=== PATIENT | female | born 1945 | race American Indian/Alaskan Native ===

== ENCOUNTER → 2016-10-26 18:23 | Outpatient (CLI) | payer MEDICARE | END | disposition home or self-care (01) | LOC: D.LABREF 18:23 | DX: J20.9 Acute bronchitis, unspecified (principal) ==

== ENCOUNTER → 2017-12-30 10:56 | Outpatient (CLI) | payer MEDICARE ==
[~2017-12-30] VITALS: Ht 162.6 cm; Wt 75.0 kg
--- NOTE | ~2017-12-30 | HEMODYNAMI ---
PATIENT:KRISHAN SOMERS MEDICAL RECORD: [id number] : 43 LOCATION:[facility] ADMISSION DATE: 12/30/17 Generatedon:12/30/201713:54 Patient name: KRISHAN SOMERS Patient #: [id number] SSN: : 1945 Date of study: 12/30/2017 Page: Of Hemodynamic Procedure Report Patient Data Patient Demographics Procedure consent was obtained First Name: KRISHAN Gender: Female Last Name: LIZBET : 1945 [facility] Initial: DAISY Age: 72 year(s) Patient #: [id number] Race: Unknown Additional ID: [id number] Contact details [address]: [address] [place] [address] [place] State: [place] City: [place] Zip code: [address] Admission Admission Data Admission Date: 12/30/2017 Admission Time: 10:56 Procedure Procedure Types Cath Procedure Diagnostic Procedure LHC LHC w/Coronaries Procedure Description Procedure Date Procedure Date: 12/30/2017 Procedure Start Time: 13:33 Procedure End Time: 13:53 Procedure Staff Name Function Daryn Carballo MD Performing Physician Sean Preston RT Monitor Modesto Pineda RN Nurse Hannah Louis RT Scrub Procedure Data Cath Procedure Fluoroscopy Diagnostic fluoroscopy Total fluoroscopy Time: 6.2 time: 6.2 min min Diagnostic fluoroscopy Total fluoroscopy dose: 335 dose: 335 mGy mGy Contrast Material Contrast Material Type Amount (ml) Isovue 300 91 Entry Location Entry Primary Successful Side Size Upsize Upsize Entry Closure Ernandez ccessful Closure Location (Fr) 1 (Fr) 2 (Fr) Remarks Device Remarks Radial Right 6 Fr Mechanical artery Short Compression Estimated blood loss: 10 ml Diagnostic catheters Device Type Used For End Catheter Placement DIAGNOSTIC [place] 110cm 5 Procedure Fr catheter ([id number]) DIAGNOSTIC JL 3.5 5Fr Procedure catheter ([id number]) DIAGNOSTIC AR MOD 5Fr Procedure Catheter ([id number]) Procedure Complications No complications Procedure Medications Medication Administration Route Dosage 0.9% NaCl I.V. 100 ml/hr Heparin Flush Bag added to field 2 bags (1000units/500ml NS) Lidocaine 2% added to field 20 Radial Cocktail added to field 1 syringe (Verapomil 2mg/Nitro 400mcg/Heparin 1500units) Versed I.V. 1 mg Fentanyl I.V. 50 mcg Versed I.V. 1 mg Fentanyl I.V. 50 mcg Radial Cocktail I.A. 1 syringe (Verapomil 2mg/Nitro 400mcg/Heparin 1500units) Hemodynamics Rest Heart Rate: 69 (bpm) Pressure Samples Time Site Value (mmHg) Purpose Heart Use Rate(bpm) 13:37 LV 166/11,16 Snapshot 76 13:38 AO 159/89(120) Pullback 77 13:38 LV 114/7,16 Pullback 77 13:38 AO 134/75(102) Snapshot 75 Gradients Valve Time Site 1 Site 2 Mean SEP/DFP Peak To Heart Use (mmHg) (sec/min) Peak Rate (mmHg) (bpm) Aortic 13:38 LV AO 0 77 114/7,16 159/89(120) Calculations Valve P-P Mean Valve Index Valve Source Name Gradient Area Flow (cm2) Aortic 0 0 Snapshots Pre Cath Intra NCS Post Cath Vital Signs Time Heart Resp SPO2 etCO2 NIBP (mmHg) Rhythm Pain Sedation Rate (ipm) (%) (mmHg) Status Level (bpm) 13:27:26 72 14 90 0 148/78(116) NSR 0 (11) 10(A) , No pain 13:32:05 72 15 92 0 151/80(117) NSR 0 (11) 10(A) , No pain 13:36:49 71 12 90 0 145/71(114) NSR 0 (11) 10(A) , No pain 13:41:28 78 15 92 0 144/72(119) NSR 0 (11) 10(A) , No pain 13:46:04 72 22 92 0 133/69(97) NSR 0 (11) 10(A) , No pain 13:50:37 71 16 94 0 137/68(101) NSR 0 (11) 10(A) , No pain Medications Time Medication Route Dose Verified Delivered Reason Notes Effectiveness by by 13:26:43 0.9% NaCl I.V. 100 [place] Per ml/hr Edwin Pineda physician RN RN 13:26:55 Heparin Flush added 2 bags [place] used for Bag to Lorigan Lorximena procedure (1000units/500ml field RN RN NS) 13:27:07 Lidocaine 2% added 20ml [place] for local to vial Lorigan Lorigan anesthetic field RN RN 13:27:24 Radial Cocktail added 1 [place] used for (Verapomil to syringe Lorigan Lorigan procedure 2mg/Nitro field RN RN 400mcg/Heparin 1500units) 13:29:53 Versed I.V. 1 mg [place] for sedation Edwin Pineda RN RN 13:30:03 Fentanyl I.V. 50 mcg [place] for sedation Edwin Pineda RN RN 13:35:43 Versed I.V. 1 mg [place] for sedation Edwin Pineda RN RN 13:35:48 Fentanyl I.V. 50 mcg [place] for sedation Edwin Pineda RN RN 13:36:18 Radial Cocktail I.A. 1 [place] Daryn for (Verapomil syringe Lorigan Haris vasodilation 2mg/Nitro ABEL STOVER 400mcg/Heparin 1500units) Procedure Log Time Note 12:58:44 Time tracking: Regular hours 12:58:47 Plan of Care:Hemodynamics will remain stable., Cardiac rhythm will remain stable., Comfort level will be maintained., Respiratory function will remain adequate., Patient/ family verbilizes understanding of procedure., Procedure tolerated without complication., Recovers from procedure without complications.. 12:58:50 Hannah Counts RT(R) sent for patient. Start room use. 13:10:19 Patient received from Pre/Post Procedure Room to CCL 3 Alert and oriented. Tansferred to table in Supine position. 13:10:20 Warm blankets applied, and annie hugger turned on for patient comfort. 13:10:20 Correct patient and procedure confirmed by team. 13:10:22 Signed procedure consent form obtained from patient. 13:10:23 ECG and BP/O2 sat monitors applied to patient. 13:10:24 Full Disclosure recording started 13:25:45 Baseline sample Acquired. 13:25:45 Vital chart was started 13:25:51 Baseline sample Acquired. 13:26:02 Rhythm: sinus rhythm 13:26:14 H&P Date Dictated: 12/25/2017 Within 30 days and on chart., H&P Addendum completed by physician on day of procedure. (MUST COMPLETE FOR ALL OUTPATIENTS). 13:26:15 Pre-procedure instructions explained to patient. 13:26:15 Pre-op teaching completed and patient verbalized understanding. 13:26:20 Family in patients room. 13:26:22 Patient NPO since Midnight. 13:26:23 Is the patient allergic to Iodine/contrast media? No. 13:26:24 Is patient on blood thinner?No 13:26:27 Patient diabetic? No. 13:26:30 Patient not . Patient is over age 55. 13:26:32 Previous problem with sedation/anesthesia? No ? 13:26:33 Snore? Yes 13:26:34 Sleep apnea? No 13:26:35 Deviated septum? No 13:26:36 Opens mouth fully? Yes 13:26:37 Sticks out tongue? Yes 13:26:41 Airway obstruction? No ? 13:26:43 0.9% NaCl 100 ml/hr I.V. was administered by Modesto Pineda RN; Per physician; 13::43 Dentures? No ? 13:26:46 Pre procedure: right dorsailis pedis pulse 1+ Palpable, but thready & weak; easily obliterated 13:26:49 Patient pain scale 0/10 ?. 13:26:53 IV patent on arrival in right forearm with 0.9% NaCl at [facility]. 13:26:55 Heparin Flush Bag (1000units/500ml NS) 2 bags added to field was administered by Modesto Pineda RN; used for procedure; 13::55 Lab results completed and on chart. 13:26:58 Right Radial & Right Groin area was prepped with chlora-prep and draped in sterile fashion 13:27:00 Alarms reviewed by R. N. 13:27:00 Sharps counted by scrub and verified by R.N. 13:27:07 Lidocaine 2% 20ml vial added to field was administered by Modesto Pineda RN; for local anesthetic; 13:27:24 Radial Cocktail (Verapomil 2mg/Nitro 400mcg/Heparin 1500units) 1 syringe added to field was administered by Modesto Pineda RN; used for procedure; 13::09 Use device set Radial Dx or PCI 13:28:18 Tegaderm 4 x 4 (1626W) opened to sterile field. 13:28:19 ACIST Syringe (72243) opened to sterile field. 13:28:20 Medline Cath Pack ([id number]) opened to sterile field. 13:28:20 Bag Decanter (2002S) opened to sterile field. 13:28:25 ACIST Hand Control (01034) opened to sterile field. 13:28:26 ACIST Manifold (17236) opened to sterile field. 13:28:27 DIAGNOSTIC WIRE .035 260cm J wire (770150) opened to sterile field. 13:28:28 MBrace Wrist Support ([id number]) opened to sterile field. 13:28:55 SHEATH 6Fr Prelude Radial ([id number]) opened to sterile field. 13:29:05 --------ALL STOP TIME OUT------ 13:29:05 Final Timeout: patient, procedure, and site verified with staff and physician. All members of the team are in agreement. 13:29:07 Right Radial & Right Groin site verified by team. 13:29:10 Physical assessment completed. ASA score P 2 - A patient with mild systemic disease as per Daryn Carballo MD. 13:29:13 Sedation plan: IV Moderate Sedation Medication:Versed, Fentanyl 13:29:53 Versed 1 mg I.V. was administered by Modesto Pineda RN; for sedation; 13:30:03 Fentanyl 50 mcg I.V. was administered by Modesto Pineda RN; for sedation; 13:30:47 Zero performed for pressure channel P1 13:33:17 Procedure started. 13:33:26 Local anesthetic to right radial artery with Lidocaine 2% by Daryn Carballo MD.INITIAL ACCESS ONLY 13:35:43 Versed 1 mg I.V. was administered by Modesto Pineda RN; for sedation; 13:35:48 Fentanyl 50 mcg I.V. was administered by Modesto Pineda RN; for sedation; 13:36:14 A 6 Fr Short sheath was inserted into the Right Radial artery 13:36:18 Radial Cocktail (Verapomil 2mg/Nitro 400mcg/Heparin 1500units) 1 syringe I.A. was administered by Daryn Carballo MD; for vasodilation; 13:36:27 A DIAGNOSTIC [place] 110cm 5 Fr catheter ([id number]) was advanced over the wire and used for Procedure. 13:37:54 LV angiography performed. 13:37:55 LV gram done using HUFF 13:38:00 EF : 55 % 13:38:02 LV hemodynamics recorded. 13:38:12 Injector settings: Ml/sec: 7, Volume: 15, 13:40:12 Catheter removed. unable to cannulate vessel. 13:42:05 A DIAGNOSTIC JL 3.5 5Fr catheter ([id number]) was advanced over the wire and used for Procedure. 13:42:10 LCA angiography performed. 13:44:00 A DIAGNOSTIC AR MOD 5Fr Catheter ([id number]) was advanced over the wire and used for Procedure. 13:46:12 Catheter removed. unable to cannulate vessel. 13:46:57 GUIDE 6FR HS I catheter (LA6HSI) opened to sterile field. 13:47:10 6 Fr HS 1 guide catheter was inserted over the wire 13:48:09 RCA angiography performed. 13:48:26 Catheter removed. 13:48:29 TR BAND Standard ([id number]) opened to sterile field. 13:48:54 Sheath removed intact; hemostasis achieved with Mechanical Compression to the Right Radial artery. 13:48:56 Procedure ended.(Physican Out) 13:51:14 Fluoroscopy time 06.20 minutes. 13:51:21 Fluoroscopy dose: 335 mGy 13:51:21 Flurop Dose total: 335 13:51:27 Contrast amount:Isovue 300 91ml. 13:51:28 Sharps counted by scrub and verified by R.N. 13:51:31 Insertion/operative site no bleeding no hematoma. 13:51:48 Post Procedure Pulses reassessed and unchanged 13:51:51 Post-procedure physical assessment completed. ASA score P 2 - A patient with mild systemic disease as per Daryn Carballo MD. 13:51:54 Post procedure rhythm: unchanged. 13:51:57 Estimated blood loss: 10 ml 13:51:58 Post procedure instruction explained to patient.Patient verbalizes understanding. 13:51:58 Patient needs reinforcement of post procedure teaching. 13:52:11 Procedure and supply charges have been captured, reviewed, submitted and are correct. 13:52:32 TR band inflated with 12cc of air. 13:52:36 Procedure Complication : No complications 13:53:40 Vital chart was stopped 13:53:40 See physician's report for complete and final results. 13:53:52 Report given to Pre/Post Procedure Room. 13:53:55 Patient transfered to Pre/Post Procedure Room with Stretcher. 13:53:58 Procedure ended. 13:53:58 Full Disclosure recording stopped 13:54:02 End room use (Document Last) Device Usage Item Name Manufacture Quantity Catalog Number Hospital Part Current M inimal Lot# / Charge Number Stock Stock Serial# Code Tegaderm 4 x 4 3M 1 [id number] [id number] 232074 5 (1626W) ACIST Syringe Acist 1 87182 343299 259913 819262 2 0 (56284) Medical Systems Inc Medline Cath Cardinal 1 [id number] 142527 65256 288858 5 Pack Health ([id number]) Bag Decanter Microtek 1 2001S 899823 53502 596838 5 (2001S) Medical Inc. ACIST Hand Acist 1 81919 319583 538044 954798 5 Control (61744) Medical Systems Inc ACIST Manifold Acist 1 34350 318343 835619 394712 5 (97248) [employer] Systems Inc DIAGNOSTIC WIRE St Venancio 1 023204 683201 956939 658870 3 0 .035 260cm J wire (231814) MBrace Wrist Advanced 1 140-0250-00 790218 57601 758270 5 Support Vascular ([id number]) Dynamics SHEATH 6Fr Merit 1 [id number] 180754 493122 326990 5 Prelude Radial Medical ([id number]) DIAGNOSTIC Terumo 1 40-5013 778493 621127 613597 5 [place] 110cm 5 Fr catheter (930294) DIAGNOSTIC JL Cardinal 1 [id number] 563660 393233 435597 5 3.5 5Fr Health catheter (987638O) DIAGNOSTIC AR Cardinal 1 [id number] 068516 429944 085963 1 5 MOD 5Fr Health Catheter (438570V) GUIDE 6FR HS I Medtronic 1 LA6HSI 016373 98558 455522 1 catheter (LA6HSI) TR BAND Terumo 1 QFE06-TGD 163804 506819 833106 4 0 Standard ([id number]) Signature Audit [place] Stage Time Signature Unsigned Intra-Procedure 12/30/2017 Sean Preston 1:54:23 PM RT(R) Signatures Monitor : Sean Preston RT Signature : Date : Time : [address] [place] [address]
--- NOTE | ~2017-12-30 | OP ---
PATIENT NAME: KRISHAN SOMERS MEDICAL RECORD: [id number] :43 LOCATION:D.[facility] ADMISSION DATE: SURGEON: THEA MEYERS MD DATE OF OPERATION: 12/30/2017 PROCEDURE: Left heart catheterization, selective coronary angiography, right radial approach. CATHETERS: Wittenberg catheter, radial sheath. The procedure was tolerated. The patient returned to the roblero. Sheath was removed. TR band was placed. FINDINGS: Left ventriculography in 30-degree HUFF view: Normal wall motion, normal systolic function. CORONARY ANATOMY: 1. Left main: Left main is free of disease. 2. LAD: Free of disease in the diagonal system. 3. Circumflex: Free of disease in the marginal system. 4. Right coronary artery: Dominant artery, gives rise to PDA, free of disease. IMPRESSION: Normal systolic function. Normal coronary anatomy. TRANSINT:[id number] Voice Confirmation ID: [id number] DOCUMENT ID: [id number] THEA MEYERS MD at 1214 CC: [id number] DICTATION DATE: 12/30/17 1358 AIRCRAFT ENGINE TECHNICIAN: 12/30/17 1421 DEP CLI 12/30/17 [facility] [address] [place] [address]
[~2017-12-30 10:56] MED LIST: BAYER CHEWABLE81 MG PO; BENADRYL25 MG PO; BREO ELLIPTA 11 EACH INH; CRANBERRY 400 M1 TA1 PO; OMEPRAZOLE20 M1 PO; PRAVASTATIN SOD10 MG PO; PRINIVIL20 MG; XALATAN 0.0052.5 ML EACH EYE
[2017-12-30 11:27] VITALS: BP 171/83; Ht 162.6 cm; Wt 75.0 kg
[2017-12-30 11:46] LABS: BASOPHILS 0.3 % (0-2); EOSINOPHILS 1.4 % (0-7); HEMATOCRIT 38.4 % (36.0-48.0); HEMOGLOBIN 12.5 g/dL (12-16); IMMATURE GRANULOCYTES 0.2 % (0-5); LYMPHOCYTES 19.8 % (15-50); MCH 30.3 pg (26.0-34.0); MCHC 32.6 g/dL (31.0-37.0); MCV 93.2 fL (80.0-100.0); MEAN PLATELET VOLUME 9.6 fL (7.4-10.4); MONOCYTES 5.9 % (2-11); NEUTROPHILS 72.4 % (40-80); PLATELET COUNT 302 10x3/uL (130-400); RBC 4.12 10x6/uL (4.00-5.40); RDW 13.2 % (11.5-14.5); WBC 9.2 10x3/uL (4.8-10.8)
[2017-12-30 11:56] LABS: CALC OSMOLALITY 278 mosm/kg (275-300); CHLORIDE - SERUM 105 mmol/L (98-107); CREATININE - SERUM 0.6 mg/dL (0.6-1.3); GLUCOSE 103 mg/dL (74-106); SODIUM 140 mmol/L (136-145); UREA NITROGEN 13 mg/dL (7-18); eGFR NON AFRICAN AMERICAN > 90 mL/min (90-120)
== END | disposition home or self-care (01) ==
LOC: D.CATH 10:56
PROVIDERS: Internal Medicine Interventional Cardiology
DX: I20.9 Angina pectoris, unspecified (principal); I10 Essential (primary) hypertension; E78.5 Hyperlipidemia, unspecified; R00.2 Palpitations; R94.30 Abnormal result of cardiovascular function study, unspecified; Z01.812 Encounter for preprocedural laboratory examination